=== PATIENT | female | born 1995 | race Caucasian/White ===

== ENCOUNTER 2022-12-24 13:22 | Emergency (ER) | payer MEDICAID ==
[~2022-12-24] VITALS: Ht 167.6 cm; Wt 70.0 kg
[2022-12-24 15:04] VITALS: BP 136/77
[2022-12-24] MEDS ORDERED: KETOROLAC 60MG/2ML VIAL IM STA (15:04)
[2022-12-24] MEDS ORDERED: TETANUS, DIPHTHERIA, PERTUSSIS VAC/PF 0.5ML (>10YR OLD) IM ONE (15:15)
[2022-12-24] MEDS ORDERED: BACITRACIN ZINC OINT UDPKT TOP ONE (16:15)
[2022-12-24] MEDS ORDERED: LIDOCAINE HCL/PF 1% 10 MG/ML 5ML VIAL INFIL ONE (16:15)
[2022-12-24] MEDS ORDERED: IBUP-2029 PO (17:15)
== END 2022-12-24 17:44 | disposition home or self-care (01) ==
LOC: EDBD → ER 14:09
DX: S91.311A Laceration without foreign body, right foot, initial encounter (principal); W22.03XA Walked into furniture, initial encounter; Y93.42 Activity, yoga; Y92.89 Other specified places as the place of occurrence of the external cause; Y99.8 Other external cause status
CPT/HCPCS: 12002; 73630; 90471; 90715; 96372; 99284; J1885; J3490; Z7610

== ENCOUNTER 2022-12-26 12:57 | Emergency (ER) | payer MEDICAID ==
[~2022-12-26] VITALS: Ht 154.9 cm; Wt 60.0 kg
[~2022-12-26 12:57] MED LIST: IBUP-2029 PO
[2022-12-26 14:33] VITALS: BP 117/96
== END 2022-12-26 15:06 | disposition home or self-care (01) ==
LOC: ER 13:08
DX: Z48.00 Encounter for change or removal of nonsurgical wound dressing (principal)
CPT/HCPCS: 99281

== ENCOUNTER 2023-05-11 01:29 | Emergency (ER) | payer MEDICAID ==
[~2023-05-11] VITALS: Ht 160 cm; Wt 65.8 kg
[2023-05-11 01:46] VITALS: PULSE 96; RESP 18
[2023-05-11 01:49] VITALS: BP 125/74; TEMP 99.6; O2SAT 100
[2023-05-11] MEDS ORDERED: ACETAMINOPHEN 325MG TABLET PO ONE (02:30)
[2023-05-11] MEDS ORDERED: DEXAMETHASONE 10 MG/ML VIAL IM ONE (03:45)
[2023-05-11] MEDS ORDERED: KETOROLAC 60MG/2ML VIAL IM ONE (03:45)
[2023-05-11] MEDS ORDERED: AMOX-494 MT (04:04)
== END 2023-05-11 05:17 | disposition home or self-care (01) ==
LOC: ER 01:29
DX: J02.9 Acute pharyngitis, unspecified (principal); Z20.822 Contact with and (suspected) exposure to COVID-19
CPT/HCPCS: 99284; 87426; 81025; 87430; 87070; 96372; J1100; J1885; C9803

== ENCOUNTER 2023-07-30 15:16 | Emergency (ER) | payer MEDICAID ==
[~2023-07-30] VITALS: Ht 162.6 cm; Wt 65.0 kg
[~2023-07-30 15:16] MED LIST changes: +AMOX-494 MT
[2023-07-30 15:28] VITALS: O2SAT 100
[2023-07-30] MEDS ORDERED: IBUPROFEN 600MG TABLET PO ONE (15:30)
[2023-07-30] MEDS ORDERED: ONDANSETRON HCL 4MG/2ML INJ IM ONE (15:30)
[2023-07-30 18:17] VITALS: BP 124/64; PULSE 76; RESP 16; TEMP 99
== END 2023-07-30 18:18 | disposition home or self-care (01) ==
LOC: ER 15:16
DX: S20.219A Contusion of unspecified front wall of thorax, initial encounter (principal); S39.012A Strain of muscle, fascia and tendon of lower back, initial encounter; V49.49XA Driver injured in collision with other motor vehicles in traffic accident, initial encounter; Y93.89 Activity, other specified; Y92.89 Other specified places as the place of occurrence of the external cause; Y99.8 Other external cause status
CPT/HCPCS: 71045; 72100; 96372; 99284; J2405; Z7610